=== PATIENT | male | born 1945 | race Caucasian/White ===

== ENCOUNTER 2019-02-09 06:12 | Observation (INO) | payer OTHER, MEDICARE ==
[2019-02-07 15:31] LABS: BASOPHILS # (AUTO) 0.03 x10^3/uL (0-0.1); BASOPHILS % (AUTO) 0 % (0-1); EOSINOPHILS # (AUTO) 0.16 x10^3/uL (0-0.4); EOSINOPHILS % (AUTO) 2 % (1-7); LYMPHOCYTES # (AUTO) 2.19 x10^3/uL (1-3.4); LYMPHOCYTES % (AUTO) 27 % (22-44); MD NO; MEAN CORPUSCULAR HEMOGLOBIN 30.5 pg (27.5-34.5); MEAN CORPUSCULAR HGB CONC 32.7 g/dL (33.2-36.2); MEAN CORPUSCULAR VOLUME 93.4 fL (81-97); MEAN PLATELET VOLUME 9.5 fL (7.4-10.4); MONOCYTES # (AUTO) 0.65 x10^3/uL (0.2-0.8); MONOCYTES % (AUTO) 8 % (2-9); NEUTROPHILS # (AUTO) 4.96 x10^3/uL (1.8-6.8); NEUTROPHILS % (AUTO) 62 % (42-75); PLATELET COUNT 179 x10^3/uL (130-400); RED BLOOD COUNT 5.36 x10^6/uL (4.38-5.82); RED CELL DISTRIBUTION WIDTH 14.1 % (9.4-14.8)
[2019-02-07 15:42] LABS: ALANINE AMINOTRANSFERASE 47 U/L (12-78); ALBUMIN 4.1 g/dL (3.4-5.0); ANION GAP 5 mmol/L (5-15); CALCIUM 9.5 mg/dL (8.5-10.1); CHLORIDE 106 mmol/L (98-107); CREATININE 1.18 mg/dL (0.7-1.3)
[2019-02-07 15:44] LABS: INTERNATIONAL NORMALIZED RATIO 1.01 (0.93-1.1); PROTHROMBIN TIME 10.6 Seconds (9.6-11.5)
[2019-02-07 15:45] LABS: ALKALINE PHOSPHATASE 78 U/L (45-117); BILIRUBIN,TOTAL 0.9 mg/dL (0.2-1.0); TOTAL PROTEIN 7.6 g/dL (6.4-8.2)
[2019-02-07 16:07] LABS: HEMOGLOBIN A1C 7.5 % (4.2-6.3)
[~2019-02-09] VITALS: Ht 177.8 cm; Wt 95.0 kg
[~2019-02-09 06:12] MED LIST: ATOR10TA PO; CYAN-27 PO; ESCI10TA10 PO; LOSA1TAB7 PO; MELA1TAB6 PO; METF500T17 PO; OMEP-110 PO
[2019-02-09] MEDS ORDERED: TRANEXAMIC ACID 100 MG/ML, 10ML ONE ×2 (06:42→06:43)
[2019-02-09] MEDS ORDERED: KETOROLAC 60 MG/2 ML ONE (06:42)
[2019-02-09] MEDS ORDERED: ROPivacaine/PF 0.2%, 10 ML ONE (06:44)
[2019-02-09] MEDS ORDERED: VANCOMYCIN 1,000 MG ONE (06:45)
[2019-02-09] MEDS ORDERED: ROPIvacaine/PF 0.2%, 20 ML ONE (06:45)
[2019-02-09] MEDS ORDERED: EPINEPHRINE 1 MG/ML, 1ML ONE (06:46)
[2019-02-09 06:56] VITALS: BP 112/77
[2019-02-09] MEDS ORDERED: LACTATED RINGERS 1,000 ML IV SCH (06:58)
[2019-02-09] MEDS ORDERED: ACETAMINOPHEN 500 MG TABLET PO ONE (07:00)
[2019-02-09] MEDS ORDERED: GABAPENTIN 300 MG CAPSULE PO ONE (07:00)
[2019-02-09] MEDS ORDERED: FENTANYL PF 100 MCG/2ML ONE ×3 (07:16→09:48)
[2019-02-09] MEDS ORDERED: BUPIVACAINE/PF 0.5% ONE ×2 (07:17)
[2019-02-09] MEDS ORDERED: SODIUM CHLORIDE 0.9% PF 10ML ONE (07:20)
[2019-02-09] MEDS ORDERED: SUCCINYLCHOLINE 20 MG/ML, 10ML ONE (07:20)
[2019-02-09] MEDS ORDERED: DEXAMETHASONE 4 MG/ML, 1ML ONE ×2 (07:20)
[2019-02-09] MEDS ORDERED: LIDOCAINE-MPF 2% ,5ML ONE ×2 (07:20→08:35)
[2019-02-09] MEDS ORDERED: CEFAZOLIN 1,000 MG ONE ×2 (07:20)
[2019-02-09] MEDS ORDERED: ACETAMINOPHEN 650 MG/20.3 ML UDC PO PRN (07:30)
[2019-02-09] MEDS ORDERED: DIPHENHYDRAMINE 50 MG CAPSULE PO PRN (07:30)
[2019-02-09] MEDS ORDERED: ZOLPIDEM 5MG TABLET PO PRN (07:30)
[2019-02-09] MEDS ORDERED: hydrALAzine 20 MG/ML, 1ML IV PRN (07:30)
[2019-02-09] MEDS ORDERED: MAGNESIUM HYDROXIDE 8%, 30ML UDC PO PRN (07:30)
[2019-02-09] MEDS ORDERED: PROMETHAZINE 25 MG/ML, 1ML IV PRN (07:30)
[2019-02-09] MEDS ORDERED: SENNA/DOCUSATE TABLET PO PRN (07:30)
[2019-02-09] MEDS ORDERED: BISACODYL 10 MG SUPP PR PRN (07:30)
[2019-02-09] MEDS ORDERED: OXYcodone 5 MG/5 ML ORAL.SOL UDC PO PRN (07:30)
[2019-02-09] MEDS ORDERED: ONDANSETRON ODT 4 MG PO PRN (07:30)
[2019-02-09] MEDS ORDERED: ONDANSETRON 2MG/ML, 2ML IV PRN ×2 (07:30)
[2019-02-09] MEDS ORDERED: LABETALOL 5MG/ML, 20ML IV PRN (07:30)
[2019-02-09] MEDS ORDERED: HYDROcodone/APAP 5/325 TABLET PO PRN (07:30)
[2019-02-09] MEDS ORDERED: HYDROmorphone 1 MG/ML, 1ML INJ IV PRN (07:30)
[2019-02-09] MEDS ORDERED: HYDROmorphone 2 MG/ML, 1ML IVPush PRN (07:30)
[2019-02-09] MEDS ORDERED: MEPERIDINE/PF 25MG/ML,1ML IVPush PRN (07:30)
[2019-02-09] MEDS ORDERED: EPHEDRINE 50 MG/ML, 1ML IVPush PRN (07:30)
[2019-02-09] MEDS ORDERED: ROPIvacaine/PF 0.5%, 20 ML ONE (07:55)
[2019-02-09] MEDS ORDERED: SODIUM CHLORIDE 0.9% 50 ML ONE (07:56)
[2019-02-09] MEDS ORDERED: ROPIvacaine/PF 0.5%, 30 ML ONE (07:56)
[2019-02-09] MEDS ORDERED: LIDOCAINE GEL 2%, 5ML ONE (08:08)
[2019-02-09] MEDS ORDERED: PROPOFOL 10 MG/ML, 20ML ONE (08:08)
[2019-02-09] MEDS ORDERED: EPHEDRINE 50 MG/ML, 1ML ONE (08:23)
[2019-02-09] MEDS ORDERED: ONDANSETRON 2MG/ML, 2ML ONE (08:35)
[2019-02-09] MEDS ORDERED: LOSARTAN 50MG TABLET PO SCH ×2 (09:00→21:00)
[2019-02-09] MEDS ORDERED: ESCITALOPRAM 10MG TABLET PO SCH ×2 (09:00→21:00)
[2019-02-09] MEDS ORDERED: OXYcodone 5 MG/5 ML ORAL.SOL UDC ONE (09:48)
[2019-02-09] MEDS: FENTANYL PF 100 MCG/2ML IV PRN ×4 (09:51→10:44)
[2019-02-09] MEDS ORDERED: ALBUTEROL HFA 90 MCG/SPRAY ONE (10:13)
[2019-02-09] MEDS ORDERED: TAMSULOSIN 0.4 MG CAP.ER.24H PO ONE (12:00)
[2019-02-09] MEDS: DOCUSATE 100 MG CAPSULE PO SCH ×2 (14:41→23:05)
[2019-02-09] MEDS: OXYcodone IR 5MG TABLET PO PRN ×3 (14:42→23:07)
[2019-02-09] MEDS: NS + 20MEQ KCL 1,000 ML IV SCH ×2 (14:42→23:25)
[2019-02-09] MEDS: CEFAZOLIN PMX 2GM/50ML 50 ML IVPB SCH ×2 (15:53→23:23)
[2019-02-09] MEDS: ASPIRIN 81 MG TABLET EC PO SCH (18:35)
[2019-02-09 18:55] VITALS: BP 110/70
[2019-02-09] MEDS ORDERED: metFORMIN XR 500 MG TAB.ER.24H PO SCH (21:00)
[2019-02-09] MEDS ORDERED: ATORVASTATIN 10 MG TABLET PO SCH (21:00)
[2019-02-10 01:19] VITALS: BP 96/58
[2019-02-10] MEDS: OXYcodone IR 5MG TABLET PO PRN ×2 (03:23→08:00)
[2019-02-10 04:52] VITALS: BP 97/61
[2019-02-10] MEDS: ASPIRIN 81 MG TABLET EC PO SCH (05:44)
[2019-02-10] MEDS: DOCUSATE 100 MG CAPSULE PO SCH (08:00)
[2019-02-10 08:16] VITALS: BP 103/62
[2019-02-10] MEDS ORDERED: HYDROCHLOROTHIAZIDE 12.5 MG CAPSULE PO SCH (09:00)
[2019-02-10] MEDS ORDERED: OXYC5TAB3 PO (10:55)
[2019-02-10] MEDS ORDERED: TRAM50TA2 PO (10:55)
[2019-02-10] MEDS ORDERED: MELO7.5T31 PO (10:56)
== END 2019-02-10 11:41 | disposition home or self-care (01) ==
LOC: OUT 06:12 → 4NE 11:16 → OUT 23:22 → 4NE 23:23 → DCLOUNGE 02-10 11:25
PROVIDERS: ADMIT Orthopaedic Surgery; ATTEND Orthopaedic Surgery
DX: M17.12 Unilateral primary osteoarthritis, left knee (principal); I10 Essential (primary) hypertension; E78.5 Hyperlipidemia, unspecified; E11.9 Type 2 diabetes mellitus without complications; F32.9 Major depressive disorder, single episode, unspecified; Z68.29 Body mass index [BMI] 29.0-29.9, adult; Z79.899 Other long term (current) drug therapy; Z86.19 Personal history of other infectious and parasitic diseases; Z87.891 Personal history of nicotine dependence
CPT/HCPCS: 27447; 36415; 80053; 82962; 83036; 85014; 85018; 85025; 85610; 85730; 87081; 93005; 96365; 96366; 97110; 97161; 97165; C1713; C1776; G0378; J0171; J0330; J0690; J1100; J1885; J2405; J2704; J2795; J3010; J3370; J3480; J3490; J7120; S0020